=== PATIENT | male | born 1995 | race African-American/Black ===

== ENCOUNTER 2020-11-10 10:40 | Emergency (ER) | payer OTHER, SELFPAY ==
--- NOTE | ~2020-11-10 | XR_ITS ---
EXAMINATION:XR ankle LT min 3V CLINICAL INFORMATION: Status post injury, pain. COMPARISON: None TECHNIQUE: AP, lateral, and mortise views of the ankle. FINDINGS: There is mild soft tissue swelling around lateral malleolus. There is no fracture or dislocation. Ankle mortise is preserved. Tibial plafond and talar dome are intact. Medial and lateral malleoli are properly aligned. Subtalar joint is normal. There is no osteolytic or osteoblastic lesions. XR/XR ankle LT min 3V IMPRESSION: No fracture. Mild soft tissue swelling around lateral malleolus.
[2020-11-10 11:17] VITALS: BP 154/56; PULSE 81; RESP 19; TEMP 36.2; O2SAT 96; BMI 42.5
--- NOTE | 2020-11-10 11:26 | ED.LOWEXIN ---
HPI - Extremity Injury (Lower) General Chief Complaint: Extremity Injury, Lower Stated Complaint: l ankle inj Time Seen by Provider: 11/10/20 10:56 Source: patient Mode of arrival: ambulatory Limitations: no limitations History of Present Illness HPI Narrative: 25 y/o male presents to the ER with c/o left ankle pain and swelling after he hurt it in a mosh pit last night. He twisted it and had immediate pain. He is able to ambulate on it but it hurts. He took 800 mg Motrin last night and today with ongoing pain. No numbness, tingling or weakness. He was able to drive his stick shift today without issue. complaint: ankle injury Onset (ago): day(s) (1) Injury: Left: ankle and foot Type of Injury: eversion Place: street/outdoors Severity: moderate Severity scale (1-10): 6 Relieving factors: NSAID Exacerbating factors: weight bearing, movement and palpation Context: jumping Associated symptoms: swelling and able to partially bear weight Other symptoms: none Treatments prior to arrival: cold therapy and NSAIDS Related Data Previous Rx's Medication Instructions Recorded ibuprofen 800 mg tablet 800 mg PO Q8H PRN #15 tab 11/10/20 Allergies Allergy/AdvReac Type Severity Reaction Status Date / Time dextromethorphan AdvReac Unknown Verified 11/10/20 11:19 [From [facility] Cold-Congestion] diphenhydramine AdvReac Unknown Verified 11/10/20 11:19 [From [employer] Cold-Congestion] guaifenesin AdvReac Unknown Verified 11/10/20 11:19 [From [employer] Cold-Congestion] phenylephrine AdvReac Unknown Verified 11/10/20 11:19 [From [employer] Cold-Congestion] pseudoephedrine AdvReac Unknown Verified 11/10/20 11:19 [From [employer] Cold-Congestion] Review of Systems Review of Systems: Constitutional: No Fever, No Chills Cardiovascular: No Chest Pain, No SOB Respiratory: No Cough, No Sputum Gastrointestinal: No Nausea, No Vomiting Musculoskeletal: + joint pain, No Myalgias Skin: No Skin Lesions, No rash Neuro: No Weakness, No Numbness Psych: No Anxiety/Panic, No Depression Heme/Lymph: No Bruising PMFSH Past Medical History Medical History (Updated 11/10/20 @ 11:33 by JANICE Burris) No known health problems Social History Social History Advance Directives: No Advance Directives Information Provided: No Physical Exam Vital Signs: Vital Signs: Last Vital Signs Temp 97.1 F 11/10/20 11:17 Pulse 81 11/10/20 11:17 Resp 19 11/10/20 11:17 BP 154/56 H 11/10/20 11:17 Pulse Ox 96 11/10/20 11:17 Body Mass Index 42.5 Appearance: Alert. Oriented X3. No acute distress. HEENT: normal inspection CVS: Normal heart rate and rhythm. Pulses normal. Respiratory: No respiratory distress. Skin: Skin warm and dry. Normal skin color. Normal skin turgor. No rashes. Extremities: left ankle with lateral swelling, no ecchymosis, normal plantar and dorsiflexion, pain with palpation of lateral malleolus and distally. NV intact. no metatarsal point tenderness. Neuro: Oriented X 3. No motor deficit. No sensory deficit. Ambulates with slight limp Course Course Course Narrative: 25 y/o male presenting with left ankle pain after mosh pit injury. XR is negative for fracture. Most likely sprain. Will treat with JESSE, R.I.C.E and NSAID. Crutches PRN. Stable for d/c home with supportive care. Critical Care Time Critical Care Time Critical Care Time: No Discharge Plan Discharge Clinical Impression: Ankle sprain and strain Patient Disposition: Home, Self-Care Instructions: Ankle Sprain (ED), R.I.C.E. Treatment (ED) Additional Instructions: Your x-ray today was normal. Rest you ankle and elevate your foot when possible. Recommend JESSE wrap for support and compression. Use ice several times per day for the next 48 hours. You may bear weight as tolerated. If pain is too severe, use crutches until better. Take Motrin and/or Tylenol as needed for pain. Follow up with your doctor as needed. Prescriptions: New ibuprofen 800 mg tablet 800 mg PO Q8H PRN (Reason: pain) Qty: 15 RF: 0 Stand Alone Forms: Work/School Release
== END 2020-11-10 11:42 | disposition home or self-care (01) ==
PROVIDERS: Emergency Provider Internal Medicine
DX: S93.402A Sprain of unspecified ligament of left ankle, initial encounter (principal); M25.472 Effusion, left ankle; X50.1XXA Overexertion from prolonged static or awkward postures, initial encounter; Y93.9 Activity, unspecified; Y92.9 Unspecified place or not applicable; Y99.9 Unspecified external cause status; Z79.899 Other long term (current) drug therapy
CPT/HCPCS: 73610; 99283